=== PATIENT | female | born 1935 | race Caucasian/White ===

== ENCOUNTER 2016-12-05 14:02 | Emergency (ER) | payer MEDICARE ==
[2016-12-05] MEDS ORDERED: SODIUM CHLORIDE 0.9% 1,000 ML IV STA (14:36)
[2016-12-05] MEDS ORDERED: MORPHINE SULFATE 4 MG/ML SYRINGE IV STA (14:36)
[2016-12-05] MEDS ORDERED: RX INFO: IV CONTRAST WAS GIVEN 1 EACH MISC MISCELLANE PRN (14:54)
--- NOTE | 2016-12-05 14:57 | ED ---
General Adult HPI - General Chief complaint: Back Pain/Injury Stated complaint: Back Pain Time Seen by Provider: 12/05/16 14:21 Source: patient, EMS, RN notes reviewed, old records reviewed Mode of arrival: EMS - History of Present Illness Initial comments: This is a 81-year-old female to the ER for evaluation. This patient presents for evaluation regarding chest pain and back pain. Severe left-sided chest pain rating her back and down her back. She also presented with shortness of breath and diaphoresis during the event. Patient is dialysis patient, otherwise has no history of high blood pressure nonsmoker no history of blood clots. Patient did have dialysis yesterday without complication. Symptoms began earlier today while she was doing no activity, no modifying factors for pain, symptoms have persisted - Related Data Home Medications Medication Instructions Recorded Confirmed Carvedilol [Coreg] 25 mg PO DAILY 12/05/16 12/05/16 Cinacalcet HCl [Sensipar] 30 mg PO MOTUWETHFR 12/05/16 12/05/16 Levothyroxine Sodium [Synthroid] 100 mcg PO DAILY 12/05/16 12/05/16 Sevelamer HCl [Renagel] 800 mg PO TID 12/05/16 12/05/16 Simvastatin [Zocor] 40 mg PO HS 12/05/16 12/05/16 hydrOXYzine HCL [Atarax] 10 mg PO TID PRN 12/05/16 12/05/16 traZODone HCL 50 mg PO HS 12/05/16 12/05/16 Allergies Allergy/AdvReac Type Severity Reaction Status Date / Time Sulfa (Sulfonamide Allergy Swelling Verified 12/05/16 14:51 Antibiotics) Review of Systems ROS Statement: Those systems with pertinent positive or pertinent negative responses have been documented in the HPI. ROS Other: All systems not noted in ROS Statement are negative. Past Medical History Past Medical History: Cancer, Dialysis, Hyperlipidemia, Renal Disease History of Any Multi-Drug Resistant Organisms: None Reported Past Surgical History: Bowel Resection, Hysterectomy Additional Past Surgical History / Comment(s): cornea transplant Past Psychological History: No Psychological Hx Reported Smoking Status: Never smoker Past Alcohol Use History: None Reported Past Drug Use History: None Reported General Exam General appearance: alert, anxious, in distress Head exam: Present: atraumatic, normocephalic, normal inspection Eye exam: Present: normal appearance, PERRL, EOMI. Absent: scleral icterus, conjunctival injection, periorbital swelling ENT exam: Present: normal exam, mucous membranes moist Neck exam: Present: normal inspection. Absent: tenderness, meningismus, lymphadenopathy Respiratory exam: Present: normal lung sounds bilaterally. Absent: respiratory distress, wheezes, rales, rhonchi, stridor Cardiovascular Exam: Present: regular rate, normal rhythm, normal heart sounds. Absent: systolic murmur, diastolic murmur, rubs, gallop, clicks GI/Abdominal exam: Present: soft, normal bowel sounds. Absent: distended, tenderness, guarding, rebound, rigid Extremities exam: Present: normal inspection, full ROM, normal capillary refill. Absent: tenderness, pedal edema, joint swelling, calf tenderness Back exam: Present: normal inspection Neurological exam: Present: alert, oriented X3, CN II-XII intact Psychiatric exam: Present: normal affect, normal mood Skin exam: Present: warm, dry, intact, normal color. Absent: rash Course Vital Signs 12/05/16 12/05/16 14:04 17:02 Temperature 97.4 F L Pulse Rate 54 L Respiratory 19 Rate Blood Pressure 170/72 184/75 O2 Sat by Pulse 94 L 99 Oximetry - Reevaluation(s) Reevaluation #1: 12/05/16 17:15 Blood pressure is being controlled secondary likelihood of underlying aortic dissection is patient has no prior history of elevated blood pressure 12/05/16 17:15 Patient given hydralazine will be started on nitroprusside Reevaluation #2: 12/05/16 17:15 Patient is still complaining of pain. Reevaluation #3: 12/05/16 17:39 Facial be transferred, flight transfer Reevaluation #4: 12/05/16 17:39 Clevidipine for BP EKG Findings - EKG Comments: EKG Findings:: EKG shows sinus bradycardia rate of 53, pO2 80, QRS 120, QTC 427 Medical Decision Making - Medical Decision Making 81 female in the ER for evaluation. Patient presents today for evaluation of chest pain elevated blood pressure. Positive thoracic aortic dissection, blood pressure is controlled, patient will be transferred for cardiothoracic surgery - Lab Data Result diagrams: 12/05/16 14:56 12/05/16 14:56 Lab Results 0812/05/16 12/05/16 Range/Units 14:56 14:56 14:56 WBC 4.7 (3.8-10.6) k/uL RBC 3.42 L (3.80-5.40) m/uL Hgb 10.2 L (11.4-16.0) gm/dL Hct 32.6 L (34.0-46.0) % MCV 95.4 (80.0-100.0) fL MCH 29.7 (25.0-35.0) pg MCHC 31.1 (31.0-37.0) g/dL RDW 17.2 H (11.5-15.5) % Plt Count 138 L (150-450) k/uL Neutrophils % 76 % Lymphocytes % 15 % Monocytes % 5 % Eosinophils % 2 % Basophils % 1 % Neutrophils # 3.6 (1.3-7.7) k/uL Lymphocytes # 0.7 L (1.0-4.8) k/uL Monocytes # 0.3 (0-1.0) k/uL Eosinophils # 0.1 (0-0.7) k/uL Basophils # 0.0 (0-0.2) k/uL Hypochromasia Marked Anisocytosis Slight Macrocytosis Slight PT (9.0-12.0) sec INR (<1.2) APTT (22.0-30.0) sec Sodium 139 (137-145) mmol/L Potassium 5.4 H (3.5-5.1) mmol/L Chloride 99 (98-107) mmol/L Carbon Dioxide 31 H (22-30) mmol/L Anion Gap 9 mmol/L BUN 32 H (7-17) mg/dL Creatinine 5.62 H* (0.52-1.04) mg/dL Est GFR (MDRD) Af Amer 9 (>60 ml/min/1.73 sqM) Est GFR (MDRD) Non-Af 7 (>60 ml/min/1.73 sqM) Glucose 133 H (74-99) mg/dL Calcium 9.5 (8.4-10.2) mg/dL Phosphorus 3.4 (2.5-4.5) mg/dL Magnesium 1.8 (1.6-2.3) mg/dL Total Bilirubin 0.8 (0.2-1.3) mg/dL AST 19 (14-36) U/L ALT 25 (9-52) U/L Alkaline Phosphatase 114 (38-126) U/L Total Creatine Kinase 29 L (30-135) U/L CK-MB (CK-2) 0.5 (0.0-2.4) ng/mL CK-MB (CK-2) Rel Index 1.7 Troponin I <0.012 (0.000-0.034) ng/mL Total Protein 5.8 L (6.3-8.2) g/dL Albumin 3.5 (3.5-5.0) g/dL Urine Color Urine Appearance (Clear) Urine pH (5.0-8.0) Ur Specific [place] (1.001-1.035) Urine Protein (Negative) Urine Glucose (UA) (Negative) Urine Ketones (Negative) Urine Blood (Negative) Urine Nitrite (Negative) Urine Bilirubin (Negative) Urine Urobilinogen (<2.0) mg/dL Ur Leukocyte Esterase (Negative) Urine RBC (0-5) /hpf Urine WBC (0-5) /hpf Ur Squamous Epith Cells (0-4) /hpf Urine Bacteria (None) /hpf 12/05/16 12/05/16 Range/Units 14:56 14:56 WBC (3.8-10.6) k/uL RBC (3.80-5.40) m/uL Hgb (11.4-16.0) gm/dL Hct (34.0-46.0) % MCV (80.0-100.0) fL MCH (25.0-35.0) pg MCHC (31.0-37.0) g/dL RDW (11.5-15.5) % Plt Count (150-450) k/uL Neutrophils % % Lymphocytes % % Monocytes % % Eosinophils % % Basophils % % Neutrophils # (1.3-7.7) k/uL Lymphocytes # (1.0-4.8) k/uL Monocytes # (0-1.0) k/uL Eosinophils # (0-0.7) k/uL Basophils # (0-0.2) k/uL Hypochromasia Anisocytosis Macrocytosis PT 11.2 (9.0-12.0) sec INR 1.1 (<1.2) APTT 22.0 (22.0-30.0) sec Sodium (137-145) mmol/L Potassium (3.5-5.1) mmol/L Chloride (98-107) mmol/L Carbon Dioxide (22-30) mmol/L Anion Gap mmol/L BUN (7-17) mg/dL Creatinine (0.52-1.04) mg/dL Est GFR (MDRD) Af Amer (>60 ml/min/1.73 sqM) Est GFR (MDRD) Non-Af (>60 ml/min/1.73 sqM) Glucose (74-99) mg/dL Calcium (8.4-10.2) mg/dL Phosphorus (2.5-4.5) mg/dL Magnesium (1.6-2.3) mg/dL Total Bilirubin (0.2-1.3) mg/dL AST (14-36) U/L ALT (9-52) U/L Alkaline Phosphatase (38-126) U/L Total Creatine Kinase (30-135) U/L CK-MB (CK-2) (0.0-2.4) ng/mL CK-MB (CK-2) Rel Index Troponin I (0.000-0.034) ng/mL Total Protein (6.3-8.2) g/dL Albumin (3.5-5.0) g/dL Urine Color Light Yellow Urine Appearance Cloudy H (Clear) Urine pH 8.0 (5.0-8.0) Ur Specific [place] 1.004 (1.001-1.035) Urine Protein 1+ H (Negative) Urine Glucose (UA) Negative (Negative) Urine Ketones Negative (Negative) Urine Blood Negative (Negative) Urine Nitrite Negative (Negative) Urine Bilirubin Negative (Negative) Urine Urobilinogen <2.0 (<2.0) mg/dL Ur Leukocyte Esterase Large H (Negative) Urine RBC 1 (0-5) /hpf Urine WBC 14 H (0-5) /hpf Ur Squamous Epith Cells 7 H (0-4) /hpf Urine Bacteria Occasional H (None) /hpf - Radiology Data Radiology results: report reviewed (CT angio shows positive thoracic ascending aorta dissection), image reviewed Critical Care Time Critical Care Time: Yes Total Critical Care Time: 65 Disposition Clinical Impression: Acute dissection of thoracic aorta Disposition: OTHER INSTITUTION NOT DEFINED Condition: Critical Referrals: Gomez Dolan MD [Primary Care Provider] - 1-2 days - Out of Hospital Transfer - Req. Specs Out of Hospital Transfer - Requested Specifics: Other Emergency Center ([facility])
[2016-12-05 15:08] LABS: Appearance,Urine Cloudy (Clear); Bacteria,Urine Occasional /hpf; Bilirubin,Urine Negative (Negative); Glucose,Urine (UA) Negative (Negative); Ketones,Urine Negative (Negative); Leukocyte Esterase,Urine Large (Negative); Nitrite,Urine Negative (Negative); Particle Count 10130; Protein,Urine 1+ (Negative); RBC,Urine 1 /hpf (0-5); Specific Gravity,Urine 1.004 (1.001-1.035); Squamous Epithelial Cell,Urine 7 /hpf (0-4); UA Billing (MACRO vs. MICRO) MICRO; Urobilinogen,Urine <2.0 mg/dL (<2.0); WBC,Urine 14 /hpf (0-5)
[2016-12-05 15:09] LABS: Anisocytosis Slight; Basophils % (A) 1 %; CH 29.2; CHCM 30.8; Eosinophils # (A) 0.1 k/uL (0-0.7); Eosinophils % (A) 2 %; HCT 32.6 % (34.0-46.0); HDW 3.35; HGB 10.2 gm/dL (11.4-16.0); Hypochromasia Marked; Luc # (Auto) 0.07; Luc % (Auto) 1; Lymphocytes # (A) 0.7 k/uL (1.0-4.8); Lymphocytes % (A) 15 %; MCH 29.7 pg (25.0-35.0); MCHC 31.1 g/dL (31.0-37.0); MCV 95.4 fL (80.0-100.0); Macrocytosis Slight; Mean Platelet Volume 6.8; Monocytes # (A) 0.3 k/uL (0-1.0); Monocytes % (A) 5 %; Neutrophils # (A) 3.6 k/uL (1.3-7.7); Neutrophils % (A) 76 %; RBC 3.42 m/uL (3.80-5.40); RDW 17.2 % (11.5-15.5); WBC 4.7 k/uL (3.8-10.6); WBC (Perox) 4.52
[2016-12-05 15:15] LABS: INR 1.1 (<1.2); Prothrombin Time 11.2 sec (9.0-12.0)
[2016-12-05 15:16] LABS: Calcium 9.5 mg/dL (8.4-10.2); Magnesium 1.8 mg/dL (1.6-2.3); Phosphorous 3.4 mg/dL (2.5-4.5); Potassium 5.4 mmol/L (3.5-5.1); Total Bilirubin 0.8 mg/dL (0.2-1.3); Total Protein 5.8 g/dL (6.3-8.2)
[2016-12-05 15:27] LABS: Creatine Kinase 29 U/L (30-135)
[2016-12-05 15:38] LABS: Creatine Kinase MB 0.5 ng/mL (0.0-2.4); Troponin I <0.012 ng/mL (0.000-0.034)
[2016-12-05] MEDS ORDERED: MORPHINE SULFATE 4 MG/ML SYRINGE IVP STA ×2 (16:02→17:33)
[2016-12-05] MEDS ORDERED: hydrALAZINE HCL 20 MG/ML 1 ML VIAL IVP STA (16:29)
--- NOTE | 2016-12-05 17:02 | CT ---
EXAMINATION TYPE: CT angio thoracic/abd aorta DATE OF EXAM: 12/05/2016 COMPARISON: NONE HISTORY: severe upper back pain CT DLP: 977.4 mGycm. Automated Exposure Control for Dose Reduction was Utilized. CONTRAST: CT scan of the thorax, abdomen and pelvis is performed with IV Contrast, patient injected with 100 mL of Omnipaque 350. There are 3-D post processed images. FINDINGS: There is abnormal contrast enhancement within the ascending aorta consistent with aortic dissection t hat extends from the aortic valve to the arch. The lumen measures 2 cm. The aorta measures 4 cm in di ameter in the ascending portion. There is extensive abnormal density encasing the trachea and around the great vessels. There is posterior mediastinal density extending to the diaphragm. There are small bilateral pleural effusions. There are numerous cysts involving both kidneys consistent with polycys tic kidney disease. There is renal cortical thinning. Heart is enlarged. I see no filling defects in the pulmonary arteries. There are coarse interstitial pulmonary infiltrates and atelectasis at the mid and lower lung gutierrez. I see no pulmonary mass. Liver shows no focal defect. Bile ducts are not dilated. Abdominal aorta is atheromatous. There is no aneurysm of the abdominal aorta. Spleen shows no focal defect. There is no sign of a pancreatic mass. There is a 6.5 x 3 cm oval-shaped fluid collection or low density mass in the pelvis posteriorly on t he left side. I see no sign of a bowel obstruction. There is a lower abdominal ventral hernia that contains small b owel. There is no evidence of a bowel obstruction. The opening is approximately 3.5 cm. There is heterogeneity in the thoracic and lumbar vertebra with numerous compression fractures. There is involvement of L3 T11 and T8 T5 T-3. Gallbladder appears normal. Bladder distends smoothly. IMPRESSION: No evidence of pulmonary embolism. 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 Cardiomegaly. Extensive mediastinal density could relate to tumor or unusual extra medullary hematopoiesis. Small b ilateral pleural effusions. Atheromatous abdominal aorta. Extensive cystic changes in both kidneys consistent with adult type polycystic kidney disease. Decrea sed renal cortical contrast density consistent with chronic renal failure. Incarcerated lower abdominal ventral hernia containing small bowel. There is a oval-shaped low-densit y pelvic mass that could be additional site of tumor. Numerous thoracic and lumbar compression fractures consistent with multiple myeloma. This exam was di scussed with Dr. Shaw, at 5:00 PM.
[2016-12-05] MEDS ORDERED: NITROPRUSSIDE 100 MG in DEXTROSE 5% IN WATER 250 ML IV ONE ×2 (17:04)
[2016-12-05] MEDS ORDERED: CLEVIDIPINE BUTYRATE 25 MG in EMPTY BAG 1 BAG IV SCH (17:30)
[2016-12-05] MEDS ORDERED: ONDANSETRON 4 MG/2 ML VIAL IVP STA (17:33)
[2016-12-05 18:28] VITALS: BP 148/65; PULSE 87; RESP 18; TEMP 97.8
== END 2016-12-05 18:30 | disposition other institution (70) ==
LOC: EC 14:02
DX: I71.01 Dissection of thoracic aorta (principal); E78.5 Hyperlipidemia, unspecified; Z99.2 Dependence on renal dialysis; Z85.9 Personal history of malignant neoplasm, unspecified; Z79.899 Other long term (current) drug therapy; Z88.2 Allergy status to sulfonamides
CPT/HCPCS: 36415; 93005; 80053; 82550; 82553; 83735; 84100; 84484; 85025; 85610; 85730; 81001; 87086; 75635; 71275; 99291; 96365; 96375 ×3; 96376 ×2; 96361 ×3; J2270; J0360; Q9967; J2405; C9248